=== PATIENT | female | born 2000 | race Caucasian/White ===

== ENCOUNTER 2024-09-11 13:30 | Emergency (ER) | payer OTHER, BC, SELFPAY ==
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
[2024-09-11 13:42] VITALS: BP 148/87; PULSE 97; RESP 16; TEMP 36.4; O2SAT 98
[2024-09-11 14:31] LABS: BEDSIDEPREGUCG Negative (Negative)
== END 2024-09-11 16:09 | disposition home or self-care (01) ==
PROVIDERS: Emergency Provider Nurse Practitioner Family
DX: S00.83XA Contusion of other part of head, initial encounter (principal); M54.50 Low back pain, unspecified; Z79.899 Other long term (current) drug therapy; V43.52XA Car driver injured in collision with other type car in traffic accident, initial encounter
CPT/HCPCS: 72100; 73502; 81025; 99204; G0463